=== PATIENT | male | born 1955 | race Caucasian/White ===

== ENCOUNTER 2022-02-26 21:07 | Emergency (ER) | payer MEDICARE, OTHER | END 2022-02-27 00:57 | disposition home or self-care (01) | LOC: FER 21:07 | DX: M25.562 Pain in left knee (principal); R22.42 Localized swelling, mass and lump, left lower limb; I25.10 Atherosclerotic heart disease of native coronary artery without angina pectoris; I10 Essential (primary) hypertension; J44.9 Chronic obstructive pulmonary disease, unspecified; Z91.041 Radiographic dye allergy status; Z79.899 Other long term (current) drug therapy | CPT/HCPCS: 73564; 93971 ==